=== PATIENT | male | born 1940 | race Caucasian/White ===

== ENCOUNTER 2016-06-05 20:50 | Inpatient (IN) | payer MEDICARE, OTHER ==
--- NOTE | ~2016-06-05 | HP ---
Unit #: [id number] #: [id number] Patient: SHANE BILL [id number] [address] [place], [place] [address] [id number] I MR#: [id number] NAME: SHANE BILL ROOM: 305 Age: 76 Sex: M Admission Date: 06/05/2016 : 1940 Attending Physician: Stuart Gregorio M.D. Primary Care Physician: Storm Medellin M.D. HISTORY AND PHYSICAL CHIEF COMPLAINT Cough, shortness of breath, wheezing. DISCUSSION This is a 76-year-old gentleman with a past medical history of lung cancer, previous right lower lobectomy, history of COPD, history of chronic respiratory failure on oxygen dependence at home. Follows with Dr. Hancock and Dr. Bonilla. History of paroxysmal atrial fibrillation, gastritis, dyslipidemia, hypertension, peripheral vascular disease, status post abdominal aortic aneurysm repair. He presented here and brought to the emergency room with a chief complaint of having shortness of breath, cough, wheezing. He said he had been using his mini nebulizer many times at home. Got worse today. Was unable to breathe. Came to ER. In the ER, patient underwent a CT chest PE protocol which was negative for pulmonary embolism. Shows postop partial right pneumonectomy and also shows minimal left lung base infiltrate but there was concern about irregular pleural mass in peripheral right upper lobe, 4.8 cm, concerning for recurrence of lung cancer and shows advanced emphysema. Patient also wheezing and being admitted though he denied chest pain, denied nausea, vomiting, diarrhea, headache, recent loss of weight, hemoptysis or any other complaint. PAST MEDICAL HISTORY 1. History of COPD. 2. History of chronic respiratory failure, oxygen dependent. 3. History of coronary artery disease. 4. History of peripheral vascular disease. 5. History of abdominal aortic aneurysm repair. 6. Dyslipidemia. 7. History of lung cancer, status post right side lobectomy in 2005. 8. History of GERD/gastritis. 9. History of mitral regurgitation. 10. History of PVCs and SVT in the past. 11. History of paroxysmal atrial fibrillation. 12. History of large reducible anterior wall abdominal hernia. 13. History of appendectomy. 14. History of incision repair. 15. History of left femur fracture with tara insertion. 16. History of right jaw surgery requiring his jaw to be wired. 17. ERCP with stent. 18. Cholecystectomy. ALLERGIES Allergic to azithromycin. Unit #: [id number] #: [id number] Patient: SHANE BILL MEDICATIONS Medications from home: 1. Singulair 10 mg daily. 2. Metoprolol 25 mg twice a day. 3. Omeprazole 40 mg daily. 4. Simvastatin 20 mg daily. 5. Dual nebulizer four times a day p.r.n. 6. Pradaxa 150 mg twice a day. SOCIAL HISTORY He quit smoking 11 years ago. Denies alcohol, denies illicit drug use. FAMILY HISTORY Positive for coronary artery disease in the family. REVIEW OF SYSTEMS 14 review of systems negative except as in History of Present Illness. PHYSICAL EXAMINATION GENERAL: Middle aged man lying in the bed comfortably, currently not in any distress. He is alert, awake, oriented x3. CURRENT VITAL SIGNS: Temperature 98.3, heart rate 94, respiratory rate 28, blood pressure is 162/91. Oxygen 96% on 3 L. HEENT: Pupils equal, reactive to light and accommodation. Head is normocephalic, atraumatic. NECK: Supple. No JVD, no thyromegaly. HEART: S1, S2. Regular rate and rhythm. LUNGS: Expiratory wheeze positive, also rhonchi. Positive for bilateral (1) . ABDOMEN: Soft, nontender, nondistended. He has a large reducible post surgical hernia in his anterior abdominal wall but no guarding, no rigidity. EXTREMITIES: Inspection normal. No cyanosis, no clubbing, no edema. SKIN: No rash, no lesion. Skin warm and dry. MUSCULOSKELETAL: No joint effusion, no joint tenderness. NEURO: Cranial nerves II-XII intact. Strength is 5/5 in all extremities. DIAGNOSTIC STUDIES LABORATORY: His troponin is less than 0.05, CK MB 3.4. Chemistry - sodium 142, potassium 4.5, chloride 100, glucose 112, BUN 11, creatinine 1. LFTs within normal limits. White count 8.9, hemoglobin 14, hematocrit 44, platelets 254. IMAGING: CT chest PE protocol shows negative for pulmonary embolism. Shows postop right partial pneumonectomy. Minimal left lung base infiltrate. Irregular pleural based peripheral mass in the right upper lobe, 4.8 cm, suspicious for recurrence of lung cancer. Advanced emphysema. ASSESSMENT AND PLAN 1. Pneumonia: Start patient on IV Levaquin. 2. New irregular pleural based mass, 4.8 cm in right upper lobe concerning for recurrence of lung cancer: I will ask Dr. Hancock to evaluate. Unit #: [id number] #: [id number] Patient: SHNAE BILL 3. Acute exacerbation of chronic obstructive pulmonary disease with chronic respiratory failure, oxygen dependent: Start on IV steroids, dual nebulizer, Mucinex. 4. History of paroxysmal atrial fibrillation: Currently rate controlled on metoprolol and on Pradaxa. 5. History of lung cancer with previous right lower lobectomy. 6. History of gastritis and gastroesophageal reflux disease: Continue omeprazole. 7. History of dyslipidemia/peripheral vascular disease: Status post abdominal aortic aneurysm repair, on simvastatin. 8. Hypertension: Continue metoprolol. 9. DVT prophylaxis: Patient is already on Pradaxa. Dictated by Marielle Sargent/kaveh TD: 06/06/2016 09:19 JOB #: [id number] HISTORY AND PHYSICAL X X HISTORY AND PHYSICAL
--- NOTE | ~2016-06-05 | CT6 ---
[facility] A Service of [facility] & [facility] RADIOLOGY TEXT RESULTS PATIENT: SHANE BILL LOCATION: [facility] 305- : 38 UNIT #: [id number] AGE: [address]: Rashid Angeles MD SEX: M ORDER DR: [id number] [facility] [address] [place], [place] [address] [id number] I MR#: [id number] Acc #: [id number] NAME: SHANE BILL : 1940 SEX: M STUDY DATE/TIME: 06/10/2016 09:30 UNIT: A [facility] ROOM: [facility] STUDY DESCRIPTION: CT Abdomen WWo Cont Attending Physician: Rashid Angeles M.D. Ordering Physician: Andrew Lauren M.D. Primary Care Physician: Storm Medellin M.D. MEDICAL IMAGING REPORT This report is preliminary unless electronic signature is present EXAM CT abdomen and pelvis without and with contrast, 06/10/2016 09:30 hours HISTORY Evaluate left upper pole renal mass seen on prior CT. History of lung carcinoma and abdominal aortic aneurysm. COMPARISON CT abdomen and pelvis angiogram 06/09/2016, ultrasound renal 06/09/[address] abdomen and pelvis without contrast 06/08/[address] abdomen and pelvis 07/05/2012. TECHNIQUE Helical noncontrasted images were obtained from the lung bases to the iliac crests. Postcontrast arterial phase and 90-second delayed phase images were obtained through the abdomen with 3-minute delayed phase images through the abdomen. The pelvis was not scanned. Sagittal and coronal reconstructions of the 90-second delayed phase images were performed. Contrast was Isovue-370, 100 mL IV. Total exam DLP 2212 mGy-cm. This CT exam was performed with one or more of the following radiation dose reduction techniques: automatic exposure control, adjustment of mA and/or kV according to patient size, and iterative reconstruction. FINDINGS Images through the lung bases demonstrate emphysematous change. There is total collapse of the left lower lobe without change. There is new ground-glass density at the right lung base with a new more solid appearing more well-circumscribed rounded area measuring 2.2 cm on image 7. This is not present on yesterday's exam and therefore infectious or STS. [facility] A Service of [facility] RADIOLOGY TEXT RESULTS PATIENT: SHANE BILL LOCATION: [facility] 305-01 : 38 UNIT #: [id number] AGE: [address]: Rashid Angeles MD SEX: M ORDER DR: embolic etiologies are strongly favored over developing mass. Noncontrasted images through the abdomen demonstrate stable pneumobilia in the liver. There is a nasogastric tube looped in the stomach. There is no adrenal lesion. There is a cyst in the upper pole right kidney measuring 1.4 cm. This is a nonenhancing benign lesion requiring no additional evaluation. Again demonstrated is a small 7.0 x 10.0 mm lesion in the medial upper pole left kidney. This is dense precontrast measuring between 40 and 60 Hounsfield units and measuring approximately 60-80 Hounsfield units postcontrast. This is most likely a complex hemorrhagic cyst. This is unchanged from the recent studies but also felt unchanged from 07/05/2012. This is most likely benign. The abdominal aorta is only partially imaged. There is a stent graft present without change from yesterday. The stomach is now decompressed. There is persistent dilatation of loops of small bowel with air-fluid levels. Example loop in the left lower quadrant measures up to 5.3 cm, slightly increased from 4.0 cm on 06/08/2016. Definite gas is seen in the colon. There is some oral contrast material within the colon as well. IMPRESSION 1. Multiphase imaging of the kidneys demonstrates a simple cyst in the upper pole right kidney requiring no additional evaluation. 2. There is a 7.0 x 10.0 mm lesion in the medial upper pole left kidney which is fairly dense measuring between 40 and 58 Hounsfield units precontrast and between 50 and 79 Hounsfield units postcontrast. It is favored that this represents a benign hyperdense cyst. It is not demonstrated on prior ultrasound. I believe it is stable or minimally changed from CT abdomen of 07/05/2012 which strongly favors a benign etiology. Suggest followup noncontrasted CT in 6-12 months. 3. Stable collapse of the left lower lobe. 4. There is new ground-glass opacity at the right lung base which has occurred since 06/09/2016. Within this ground-glass density is a more homogeneous more well-defined 2.2 cm nodular airspace density which is also new since yesterday. The rapid change favors an infectious or embolic etiology. Tumor mass is felt unlikely to be this size in 1 day. 5. Persistent increased distension of small bowel with definite gas seen in colon. Patient is scheduled for small bowel follow-through today. STAT * RESULT Dictated by... Miguelina Alonso M.D. THIS IS AN ELECTRONICALLY VERIFIED REPORT [facility] A Service of [facility] & [facility] RADIOLOGY TEXT RESULTS PATIENT: SHANE BILL LOCATION: [facility] 305-01 : 38 UNIT #: [id number] AGE: [address]: Rashid Angeles MD SEX: M ORDER DR: Miguelina Alonso M.D. at 06/21/2016 9:17 AM Adrian TD: 06/10/2016 10:26 JOB #: [id number] MEDICAL IMAGING REPORT Page 1 of 1 COPY
--- NOTE | ~2016-06-05 | CO ---
Unit #: [id number] #: [id number] Patient: SHANE BILL [id number] [address] [address] [id number] I MR#: [id number] NAME: SHANE BILL ROOM: 305 Age: 76 Sex: M Admission Date: 06/05/2016 : 1940 Attending Physician: Rashid Angeles M.D. Primary Care Physician: Storm Medellin M.D. Consultation Date: 06/09/2016 CONSULTATION REPORT REASON FOR CONSULTATION Small hyperdense lesion on CT scan. HISTORY This 76-year-old man was admitted with pneumonia. He has a new pleural-based chest mass. He is having active problems with gastroparesis, being evaluated, and there is some question of a leaking abdominal aortic aneurysm. On noncontrast CT, is seen a 7 mm markedly exophytic lesion on the anterior aspect of the mid left kidney medially which is hyperdense. The patient has no history of voiding difficulties, gross hematuria, infection or stone disease. He is missing his left testicle from trauma years ago. PAST MEDICAL HISTORY 1. COPD. 2. History of lung cancer, status post right lobectomy in 2005. 3. Chronic respiratory failure on oxygen. 4. Coronary artery disease. 5. Peripheral vascular disease. 6. A 4.3 cm abdominal aortic aneurysm, status post repair. 7. Dyslipidemia. 8. History of mitral regurgitation, PVCs, SVT in the past. 9. PAF. 10. GERD. 11. Gastritis. 12. Recurrent hernias. PAST SURGICAL HISTORY 1. Cholecystectomy. 2. ERCP with stent. 3. Jaw surgery. 4. Femur fracture. 5. Ventral herniorrhaphy. 6. Appendectomy. 7. Lobectomy. ADMISSION MEDICATIONS 1. Singulair. 2. Metoprolol. 3. Omeprazole. 4. Simvastatin. 5. Nebulizer. Unit #: [id number] #: [id number] Patient: SHANE BILL 6. Pradaxa. ALLERGIES Azithromycin. FAMILY HISTORY Positive for coronary disease. SOCIAL HISTORY Quit smoking 11 years ago. REVIEW OF SYSTEMS negative as above and all other systems negative as per HPI. PHYSICAL EXAMINATION GENERAL: On examination, the patient has a large abdominal ventral hernia. ABDOMEN: Soft, nontender. No masses. GENITALIA: Phallus normal. Normal glans and meatus. Solitary descended right testicle. RECTAL: Digital deferred. DIAGNOSTIC STUDIES LABORATORY: Laboratory is notable for a BUN 28, creatinine 0.9, eGFR above 60. IMAGING: CT scan as above including other findings. IMPRESSION Small lesion, likely hyperdense cyst, maybe visible on ultrasound but if not will need a CT renal mass protocol which should not be done until after he is cleared surgically and by vascular so as not to order conflicting studies. PLAN Will order renal ultrasound and proceed accordingly. Thank you for the consultationChiki. Dictated by... Andrew Lauren M.D. JASKARAN/to TD: 06/09/2016 08:59 JOB #: [id number] CC: Marielle Edwards M.D. Unit #: [id number] #: [id number] Patient: SHANE BILL CONSULTATION REPORT Page 1 of 1 X Andrew Lauren MD CONSULTATION REPORT
--- NOTE | ~2016-06-05 | DS ---
Unit #: [id number] #: [id number] Patient: SHANE BILL [id number] [address] [place], [place] [address] [id number] MR#: [id number] NAME: SHANE BILL ROOM: [facility] Age: 76 Sex: M Admission Date: 06/05/2016 : 1940 Discharge Date: 06/11/2016 Attending Physician: Rashid Angeles M.D. Primary Care Physician: Storm Medellin M.D. DISCHARGE SUMMARY ADMITTING DIAGNOSIS Cough, shortness of breath, and wheeze. FURTHER DIAGNOSES 1. Community-acquired pneumonia. 2. History of lung cancer, status post right lower lobectomy, possible recurrent mass concerning for recurrence of lung cancer. 3. History of chronic obstructive pulmonary disease. 4. History of chronic respiratory failure. 5. 7 mm mass on the kidney. 6. Increasing aortic aneurysm. 7. Possible gastrointestinal bleed with hemoptysis. 8. Small bowel obstruction which is relieved now. CONSULTANTS 1. Dr. Hancock. 2. Dr. Walt Hernandez. 3. Dr. Lauren. 4. Dr. Boucher. 5. Dr. Jamin Reynoso, vascular surgeon. HISTORY OF PRESENT ILLNESS The patient is a 76-year-old gentleman with a past medical history of lung cancer, status post right lower lobectomy, history of COPD, chronic respiratory failure on oxygen, presented to the hospital with chief complaint of cough and shortness of breath. In the hospital course, CT of the chest was done which was negative for PE but it shows irregular pleural mass in the periphery of the right upper lobe about 4.8 cm concerning for recurrence of lung cancer and also advanced emphysema. HOSPITAL COURSE Pulmonary was consulted. Dr. Hancock has recommended the patient to follow up with him in the clinic for an outpatient repeat CT scan in the month of July. He was treated with antimicrobials for a total of 7 days for possible postobstructive pneumonia versus community-acquired pneumonia with Levaquin and Flagyl. In the hospital course he also had an episode of hematemesis and for further workup an EGD was done. When the EGD was done, he was noted to have a large amount of fluid in the stomach with a concern for small bowel obstruction. A CT of the abdomen was done which showed small bowel obstruction. He was managed conservatively, Surgery followed the patient. Unit #: [id number] #: [id number] Patient: SHANE BILL Slowly, his bowel function resumed. He is able to tolerate oral and he had bowel movements. He was also noted to have a 7 mm renal mass. Urology was consulted. He had a CT of the abdomen with renal protocol. He is instructed to follow with Urology as an outpatient. His abdominal aortic aneurysm was noted to increase in size and, Vascular Surgery was consulted. Vascular Surgery recommended no further workup at this point but he needs a repeat CT angiogram of the abdomen in 3 to 6 months for further evaluation. With the concern for GI bleed, his Pradaxa was kept on hold. Today we are resuming his Pradaxa. The vascular surgeon said there is no contraindication from his standpoint. I spoke with Gastroenterology and they are also agreeable to let him resume his oral anticoagulation. He is doing clinically better. We will discharge him requesting to follow with his primary care in 1 to 2 weeks. I spoke with Dr. King this afternoon who is covering for Dr. Hancock. The patient is requiring 4 liters of oxygen and he said we will continue with oxygen and discharge him home. PHYSICAL EXAMINATION On the day of the discharge: VITAL SIGNS: Temperature 98.9, pulse rate 82, respiratory rate 18, blood pressure 126/78. GENERAL: Patient is alert and oriented times 3, lying in the bed in no acute distress. HEENT: Normocephalic, atraumatic. No icterus. PERRLA. Extraocular muscles are intact. NECK: Supple. No JVD. HEART: S1, S2 irregular. CHEST: Bilateral equal air entry. Minimal rhonchi. Old surgical scar. ABDOMEN: Well-healed midline surgical scar. Mild distention. Bowel sounds present. EXTREMITIES: No edema. Normal pulses. DISCHARGE MEDICATIONS Include: 1. Combivent 3 mL nebulization q.6 h. p.r.n. 2. Tylenol p.r.n. 3. Pradaxa 150 mg b.i.d. 4. Dulera 200/5 mcg inhaler two puffs b.i.d. 5. Metoprolol 25 mg b.i.d. 6. Mucinex one tab p.o. b.i.d. 7. Simvastatin 20 mg daily. 8. Montelukast 10 mg daily. 9. Omeprazole 40 mg daily. DISCHARGE INSTRUCTIONS He is instructed to follow with his primary care and with Pulmonary as an outpatient. Also with Urology. All of the discharge instructions explained in detail to the patient. Total time spent on his in his care, 35 minutes. Unit #: [id number] #: [id number] Patient: SHANE BILL by..Marielle Azul/marty TD: 06/11/2016 18:38 JOB #: [id number] DISCHARGE SUMMARY Page 1 of 1 X X DISCHARGE SUMMARY
--- NOTE | ~2016-06-05 | US77 ---
[facility] A Service of [facility] & [facility] RADIOLOGY TEXT RESULTS PATIENT: SHANE BILL LOCATION: [facility] - : 38 UNIT #: [id number] AGE: [address]: Rashid Angeles MD SEX: M ORDER DR: [id number] [facility] [address] [place], [place] [address] [id number] MR#: [id number] Acc #: [id number] NAME: SHANE BILL : 1940 SEX: M STUDY DATE/TIME: 06/09/2016 9:55 UNIT: [address] ROOM: [facility] STUDY DESCRIPTION: US Kidney Bilateral Complete Attending Physician: Rashid Angeles M.D. Ordering Physician: Andrew Lauren M.D. Primary Care Physician: Storm Medellin M.D. MEDICAL IMAGING REPORT This report is preliminary unless electronic signature is present EXAM Renal ultrasound bilateral 06/09/2016 INDICATIONS Assessment of a left renal cyst, BUN 28. Creatinine 0.9, GFR greater than 60. CT of the abdomen and pelvis no contrast 06/08/2016 demonstrated an indeterminate 7 mm nodule that was hyperdense and arising from the anterior aspect of the left kidney. TECHNIQUE Sonographic imaging of the kidneys was performed bilaterally. Correlation is made with recent CT 06/08/2016. FINDINGS The kidney measures 13.2 x 7.1 x 4.7 cm. Left kidney measures 11.0 x 6.2 x 5.2 cm. No hydronephrosis or shadowing stone on either side. The 7 mm hyperdense lesion in the anterior medial left kidney has no distinct ultrasound correlate. If the patient can tolerate IV contrast then a multiphase protocol CT would be recommended for further assessment of the indeterminate 7 mm lesion. If the patient is not a candidate for IV contrast consider followup noncontrast CT in 6 months for reassessment of stability of the lesion. The technologist has placed calipers upon an area of decreased echogenicity associated with the renal cortex favored to represent normal renal cortex based on imaging features with ultrasound. No distinct lesion identified on ultrasound or on the noncontrast CT in this location. The bladder is unremarkable. IMPRESSION 1. There is no correlate for the 7 mm indeterminate lesion in the medial anterior left kidney on today's ultrasound. See discussion above regarding further evaluation with renal protocol with and without contrast CT if the patient is a candidate for IV contrast. If the [facility] A Service of [facility] RADIOLOGY TEXT RESULTS PATIENT: SHANE BILL LOCATION: [facility] 305-01 : 38 UNIT #: [id number] AGE: [address]: Rashid Angeles MD SEX: M ORDER DR: patient is not a candidate for IV contrast a repeat noncontrast CT in 6 months could be performed for reassessment of stability. 2. The kidneys demonstrate no hydronephrosis or shadowing stone on either side. 3. Bladder unremarkable. Dictated by... Ignacio Castaneda M.D. THIS IS AN ELECTRONICALLY VERIFIED REPORT Ignacio Castaneda M.D. at 06/10/2016 7:31 AM Fernandez TD: 06/09/2016 15:18 JOB #: [id number] MEDICAL IMAGING REPORT Page 1 of 1 COPY
--- NOTE | ~2016-06-05 | CT16 ---
[facility]. [facility] A Service of [facility] & [facility] RADIOLOGY TEXT RESULTS PATIENT: SHANE BILL LOCATION: [facility] 305- : 38 UNIT #: [id number] AGE: [address]: Rashid Angeles MD SEX: M ORDER DR: [id number] [place] [id number] [facility]. [place], [place] [address] [id number] I MR#: [id number] Acc #: [id number] NAME: SHANE BILL : 1940 SEX: M STUDY DATE/TIME: 06/05/2016 21:24 UNIT: [address] ROOM: [facility] STUDY DESCRIPTION: CT Angio Chest for PE Attending Physician: Stuart Gregorio M.D. Ordering Physician: Ed Julio Aranda M.D. Primary Care Physician: Storm Medellin M.D. MEDICAL IMAGING REPORT This report is preliminary unless electronic signature is present EXAM CT chest with contrast, pulmonary arteriography protocol, 06/05/2016. HISTORY 76-year-old male in the ED complaining of 2-day history of shortness of air, worsening this evening. Past history of lung cancer. TECHNIQUE CT examination of the chest was performed with IV contrast using pulmonary arteriography protocol. 3-D CTA images of the pulmonary arteries were reformatted in multiple planes. This CT exam was performed with one or more of the following radiation dose reduction techniques: Automatic exposure control, adjustment of mA and/or kV according to patient size, and iterative reconstruction. COMPARISON CT chest, 09/01/2010. FINDINGS No evidence of pulmonary embolism. Normal-caliber thoracic aorta. Heart size is normal, there is no pericardial effusion. Postop changes partial right pneumonectomy surgery. Advanced pulmonary emphysema. Central pulmonary artery enlargement likely related to chronic pulmonary artery hypertension. Mild patchy infiltrate in the left lung base with opacification of a few central left lower lobe bronchi. There is an irregular, pleural-based pulmonary mass in the right upper lung posteriorly along the paraspinal margin measuring up to 4.8 x 1.8 cm. This was not present on the previous study and is concerning for recurrent STS. [facility] A Service of [facility] & [facility] RADIOLOGY TEXT RESULTS PATIENT: SHANE BILL LOCATION: [facility] 305-01 : 38 UNIT #: [id number] AGE: [address]: Rashid Angeles MD SEX: M ORDER DR: malignancy. Short interval followup or biopsy is recommended for further evaluation. No suspicious mass or adenopathy is seen within the mediastinum or pulmonary gregorio, or elsewhere within the chest. Limited upper abdominal images showing postop changes cholecystectomy and likely sphincterotomy with intrahepatic pneumobilia and a few scattered benign-appearing liver cysts. IMPRESSION 1. No evidence of pulmonary embolism. 2. Tortuous thoracic aorta is normal in caliber. Heart size normal. No pericardial effusion. 3. Postop changes partial right pneumonectomy. 4. Advanced pulmonary emphysema. Minimal patchy infiltrate left lung base with opacification of a few central left lower lobe bronchi. 5. Suspicious irregular pleural-based peripheral pulmonary mass in the right upper lung posteromedial along posteromedially along the paraspinal margin measuring up to 4.8 cm. This was not present on 09/01/2010 and is concerning for recurrent lung cancer. Short interval followup CT or biopsy is recommended for further evaluation. No additional suspicious mass or adenopathy is seen elsewhere within the chest. 6. Central pulmonary artery enlargement likely indicated. Pulmonary artery hypertension. 7. Postop changes cholecystectomy and likely sphincterotomy. Dictated by... Raf Pretty M.D. THIS IS AN ELECTRONICALLY VERIFIED REPORT Raf Pretty M.D. at 06/07/2016 9:53 PM GLENN/chaz TD: 06/07/2016 06:37 JOB #: [id number] MEDICAL IMAGING REPORT COPY
--- NOTE | ~2016-06-05 | CR72 ---
[facility] A Service of [facility] & [facility] RADIOLOGY TEXT RESULTS PATIENT: SHANE BILL LOCATION: [facility] - : 38 UNIT #: [id number] AGE: [address]: Stuart Gregorio MD SEX: M ORDER DR: [id number] [facility] [address] [facility]. [place], [place] [address] [id number] I MR#: [id number] Acc #: [id number] NAME: SHANE BILL : 1940 SEX: M STUDY DATE/TIME: 06/05/2016 20:05 UNIT: [address] ROOM: [facility] STUDY DESCRIPTION: CR Chest Single View Portable Attending Physician: Stuart Gregorio M.D. Ordering Physician: Wander Aranda M.D. Primary Care Physician: Storm Medellin M.D. MEDICAL IMAGING REPORT This report is preliminary unless electronic signature is present EXAM Chest x-ray, single view portable, 06/05/2016 HISTORY Short of air, cough and congestion started yesterday. History of right side lung cancer. COMMENTS Single frontal portable view of the chest timed 20:05 on 06/05/2016 compared to 12/23/2015. There is right hemithorax volume loss consistent with a treated lung cancer. There is parenchymal scarring which is unchanged on plain film comparison. No change in the appearance of the right hilum. Heart size is normal. There is ectasia of the descending thoracic aorta with vascular calcification, also chronic and stable. There is a small opacity at the periphery of the left lung base which is new. It is nonspecific and could be some patchy airspace disease but please correlate further clinically and followup to ensure resolution. If staging of the patient's lung cancer is indicated, chest CT would be better for followup. No pneumothorax. IMPRESSION Extensive chronic abnormalities including postoperative changes to the right hemithorax which are stable. There is one parenchymal opacity at the periphery of the left base which is new from 2016 and could be a small amount of pneumonitis but it is very nonspecific and clinical correlation and followup to resolution is recommended. Nothing to suggest congestive failure, pleural effusion or pneumothorax. If restaging of the patient's lung cancer is indicated it is best performed with a followup chest CT. [facility] A Service of [facility] & [facility] RADIOLOGY TEXT RESULTS PATIENT: SHANE BILL LOCATION: [facility] 305-01 : 38 UNIT #: [id number] AGE: [address]: Stuart Gregorio MD SEX: M ORDER DR: Dictated by... Ashley West M.D. THIS IS AN ELECTRONICALLY VERIFIED REPORT Ashley West M.D. at 06/07/2016 7:46 AM STEPHANIE/corinne TD: 06/07/2016 03:13 JOB #: [id number] MEDICAL IMAGING REPORT COPY
--- NOTE | ~2016-06-05 | CR4 ---
[facility] A Service of [facility] RADIOLOGY TEXT RESULTS PATIENT: SHANE BILL LOCATION: [facility] - : 38 UNIT #: [id number] AGE: [address]: Rashid Angeles MD SEX: M ORDER DR: [id number] [facility] [address] [place], [place] [address] [id number] I MR#: [id number] Acc #: [id number] NAME: SHANE BILL : 1940 SEX: M STUDY DATE/TIME: 06/08/2016 13:21 UNIT: [address] ROOM: [facility] STUDY DESCRIPTION: CR Abdomen Flat Upright or Dec Attending Physician: Rashid Angeles M.D. Ordering Physician: Walt Hernandez M.D. Primary Care Physician: Storm Medellin M.D. MEDICAL IMAGING REPORT This report is preliminary unless electronic signature is present EXAM Flat and upright abdomen, 06/08/2016 INDICATION 76-year-old male with possible perforation and abdominal pain today. Compared with chest x-ray from 06/05/2016, FINDINGS There is diffuse gas within the colon and the small bowel. There is a crescentic area of gas in the right upper quadrant. It appears to be outlining some bowel loops and is concerning for some free air given the clinical concern. I would suggest further evaluation with a CT scan. An aortic stent graft is in place. IMPRESSION There is a crescentic air density in the right upper quadrant which appears to outline some loops of bowel and is concerning for the possibility of free air given the clinical concern. At this point I would recommend further evaluation with a CT scan of the abdomen and pelvis. Dictated by... Moris Sampson M.D. THIS IS AN ELECTRONICALLY VERIFIED REPORT Moris Sampson M.D. at 06/09/2016 11:31 AM DONI/corinne TD: 06/08/2016 21:11 JOB #: [id number] [facility] A Service of [facility] & [facility] RADIOLOGY TEXT RESULTS PATIENT: SHANE BILL LOCATION: [facility] 305-01 : 38 UNIT #: [id number] AGE: [address]: Rashid Angeles MD SEX: M ORDER DR: MEDICAL IMAGING REPORT Page 1 of 1 COPY
--- NOTE | ~2016-06-05 | CT4 ---
[facility] A Service of [facility] & [facility] RADIOLOGY TEXT RESULTS PATIENT: SHANE BILL LOCATION: [facility] 305- : 38 UNIT #: [id number] AGE: [address]: Rashid Angeles MD SEX: M ORDER DR: [id number] [facility] [address] [facility] [address] [place], [place] [address] [id number] I MR#: [id number] Acc #: [id number] NAME: SHANE BILL : 1940 SEX: M STUDY DATE/TIME: 06/08/2016 15:11 UNIT: A U ROOM: 305 STUDY DESCRIPTION: CT Abd and Pelv Wo Cont Attending Physician: Rashid Angeles M.D. Ordering Physician: Rashid Angeles M.D. Primary Care Physician: Storm Medellin M.D. MEDICAL IMAGING REPORT This report is preliminary unless electronic signature is present EXAM CT of the abdomen and pelvis without contrast media, 06/08/2016 COMPARISON 07/05/2012 HISTORY SUPPLIED Possible free air in the abdomen seen on the abdominal radiograph. Abdominal pain beginning today. TECHNIQUE Transaxial imaging of the abdomen and pelvis was performed without contrast media: This CT exam was performed with one or more of the following radiation dose reduction techniques: automatic exposure control, adjustment of mA and/or kV according to patient size, and iterative reconstruction. FINDINGS Scans through the lung bases show complete atelectasis of the left lower lobe with air bronchograms. There is evidence of advanced chronic lung disease. The patient has pneumobilia. Gallbladder is absent. There is air in the common duct down to the duodenum. No masses are identified. Spleen is relatively small. Adrenal gland are normal. Pancreas is atrophic. There is renal cortical thinning in the lower pole of the right kidney. There is a hyperdense left renal lesion measuring 7 mm in diameter. It appears slightly larger than it did on the scan of 4 years ago. No other definite renal masses are seen. Postop changes of prior aortic stent graft placement are present. 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 There are dilated small bowel loops throughout the abdomen. Zone of transition appears to be in the distal ileum in the right lower quadrant. Ventral abdominal wall hernia containing fat is present. There [facility] A Service of [facility] RADIOLOGY TEXT RESULTS PATIENT: SHANE BILL LOCATION: [facility] 305-01 : 38 UNIT #: [id number] AGE: [address]: Rashid Angeles MD SEX: M ORDER DR: is no evidence of obstruction related to the ventral hernia. The prostate is not enlarged. There are postop changes in the left femoral shaft. There is advanced atherosclerotic disease present. There is evidence of degenerative facet disease in the lower lumbar spine. Anterior wedge compression deformity is present at T10. It is unchanged from 2013. CONCLUSION 1. Complete atelectasis of the left lower lobe with air bronchograms. 2. Pneumobilia. 3. No evidence of intraabdominal free air. 4. Not mentioned above, coronary atherosclerotic disease. 5. Marked renal cortical thinning in the lower pole of the right kidney. 6. Small hyperdense lesion measuring 7 mm arising from the anterior aspect of the left kidney, probably a small cyst with hemorrhage. 7. Dilated small bowel down to the right lower quadrant where there is an abrupt zone of transition suggesting high-grade partial small bowel obstruction. 8. Increase in size of the aneurysm sac to about4.3 cm from approximately 3.5 cm on the old study. This raises the question of an endoleak. 5. Ventral abdominal wall hernias. It does contain some bowel but there is no evidence of obstruction related to the hernias. 6. Advanced atherosclerotic disease. 7. Postop changes left femoral shaft. 8. Chronic and T10 compression fracture. Dictated by... Gregor Min M.D. THIS IS AN ELECTRONICALLY VERIFIED REPORT Gregor Min M.D. at 06/09/2016 3:09 PM BRIAN/corinne TD: 06/09/2016 04:50 JOB #: [id number] MEDICAL IMAGING REPORT Page 1 of 1 COPY
--- NOTE | ~2016-06-05 | CR236 ---
[facility] A Service of [facility] RADIOLOGY TEXT RESULTS PATIENT: SHANE BILL LOCATION: [facility] : 38 UNIT #: [id number] AGE: [address]: Rashid Angeles MD SEX: M ORDER DR: [id number] [facility] [address] [facility] [place], [place] [address] [id number] I MR#: [id number] Acc #: [id number] NAME: SHANE BILL : 1940 SEX: M STUDY DATE/TIME: 06/10/2016 9:50 [facility] STUDY DESCRIPTION: CR Small Bowel Sbft W Films Attending Physician: Rashid Angeles M.D. Ordering Physician: Gregor Boucher M.D. Primary Care Physician: Storm Medellin M.D. MEDICAL IMAGING REPORT This report is preliminary unless electronic signature is present EXAM Small bowel follow-through 06/10/[address] abdomen and pelvis 06/10/2016 HISTORY Suspected small bowel obstruction. FINDINGS Spot images obtained without fluoroscopy. Total of 6 overhead images were obtained. These revealed minimal ingested barium which the patient unfortunately became nauseated and threw up, with minimal dilute distal flow of contrast. No meaningful assessment of obstruction could be performed. IMPRESSION Fairly limited study because the patient became nauseated and experienced emesis with any attempt to swallow more contrast. This yielded only very dilated oral contrast passing only a short distance discernibly into the small bowel and no meaningful assessment could be performed. Dictated by... Aneesh Castelan M.D. THIS IS AN ELECTRONICALLY VERIFIED REPORT Aneesh Castelan M.D. at 06/11/2016 4:00 PM RONEN/rob TD: 06/10/2016 16:31 JOB #: [id number] MEDICAL IMAGING REPORT [facility] A Service [facility] RADIOLOGY TEXT RESULTS PATIENT: SHANE BILL LOCATION: [facility] 305-01 : 38 UNIT #: [id number] AGE: [address]: Rashid Angeles MD SEX: M ORDER DR: Page 1 of 1 COPY
--- NOTE | ~2016-06-05 | CR4 ---
[facility] A Service of [facility] & [facility] RADIOLOGY TEXT RESULTS PATIENT: SHANE BILL LOCATION: [facility] - : 38 UNIT #: [id number] AGE: [address]: Rashid Angeles MD SEX: M ORDER DR: [id number] [facility] [address] [facility] [place], [place] [address] [id number] I MR#: [id number] Acc #: [id number] NAME: SHANE BILL : 1940 SEX: M STUDY DATE/TIME: 06/09/2016 10:25 UNIT: A PCU ROOM: [facility] STUDY DESCRIPTION: CR Abdomen Flat Upright or Dec Attending Physician: Rashid Angeles M.D. Ordering Physician: Chiki Mccullough M.D. Primary Care Physician: Storm Medellin M.D. MEDICAL IMAGING REPORT This report is preliminary unless electronic signature is present EXAM Abdomen supine and upright 06/09/2016, 10:33 hours. HISTORY Abdominal distension with pain, possible obstruction. Symptoms since 06/05/2016. COMPARISON CT abdomen and abdominal film 06/08/2016. FINDINGS Supine and upright views of the abdomen demonstrate a nasogastric tube which loops in the stomach with the tip directed cephalad at the GE junction. There are persistent multiple gas-filled dilated loops of small bowel with some colonic gas present. Findings appear similar to the CT scan of 06/08/2016, suggesting distal obstruction. Vascular stents noted in the aorta and iliac vessels without change. Hardware is present at the left hip with proximal aspect of the screw projecting beyond the cortical margin of the trochanter. IMPRESSION 1. Persistent gaseous distension of numerous loops of small bowel which are not dilated similar to CT scan 06/08/2016, with some colonic gas present. Findings suggest persistent small bowel obstruction, likely distally. 2. There is a nasogastric tube present which loops in the stomach with tip directed cephalad back at the GE junction. Consider adjustment. 3. Hardware at the left proximal femur with bone screw projecting beyond the cortical margin of the greater trochanter. [facility] A Service of [facility] & [facility] RADIOLOGY TEXT RESULTS PATIENT: SHANE BILL LOCATION: [facility] 305-01 : 38 UNIT #: [id number] AGE: [address]: Rashid Angeles MD SEX: M ORDER DR: Dictated by... Miguelina Alonso M.D. THIS IS AN ELECTRONICALLY VERIFIED REPORT Miguelina Alonso M.D. at 06/10/2016 9:21 AM RICK/cheryl TD: 06/09/2016 15:31 JOB #: [id number] MEDICAL IMAGING REPORT Page 1 of 1 COPY
--- NOTE | ~2016-06-05 | EKG ---
PATIENT: SHANE BILL UNIT #: [id number] Ventricular Rate: 88 BPM Atrial Rate: 88 BPM P-R Interval: 200 ms QRS Duration: 92 ms Q-T Interval: 390 ms QTC Calculation(Bezet): 471 ms P Newell: 67 degrees Calculated R Newell: -68 degrees Calculated T Newell: 58 degrees Diagnosis Line: Normal sinus rhythm Diagnosis Line: Left axis deviation Diagnosis Line: Abnormal ECG Diagnosis Line: When compared with ECG of 30-DEC-2015 07:41, Diagnosis Line: Sinus rhythm has replaced Atrial fibrillation Diagnosis Line: Confirmed by ESTRELLA PUGH MD ([id number]) on 06/07/2016 Diagnosis Line: 7:30:48 AM INTERPRETING MD: KEATON KIRKLAND
--- NOTE | ~2016-06-05 | CT14 ---
[facility] A Service of [facility] RADIOLOGY TEXT RESULTS PATIENT: SHANE BILL LOCATION: [facility] 305- : 38 UNIT #: [id number] AGE: [address]: Rashid Angeles MD SEX: M ORDER DR: [id number] [facility] [address] [place], [place] [address] [id number] MR#: [id number] Acc #: [id number] NAME: SHANE BILL : 1940 SEX: M STUDY DATE/TIME: 06/09/2016 15:39 UNIT: [address] ROOM: 305 STUDY DESCRIPTION: CT Angio Abdomen and Pelvis Attending Physician: Rashid Angeles M.D. Ordering Physician: Rashid Angeles M.D. Primary Care Physician: Storm Medellin M.D. MEDICAL IMAGING REPORT This report is preliminary unless electronic signature is present EXAM CT angiography abdomen and pelvis, 06/09/2016. HISTORY Patient had CT abdomen and pelvis 06/08/2016. Results have increased in size of aneurysm sac to 4.3 cm from 3.5 cm on old study. This exam is to evaluate for possible endoleak. Denies any symptoms other than increased gas for 1 day. Prior history of COPD and lung cancer. TECHNIQUE CT of the abdomen and pelvis performed with CT angiography protocol using 100 mL Isovue-370 intravenously. Arterial and delayed-phase imaging obtained through the aorta. Multiple 3-dimensional reconstructions performed through the aorta. This CT exam was performed with one or more of the following radiation dose reduction techniques: automatic exposure control, adjustment of mA and/or kV according to patient size, and iterative reconstruction. COMPARISON Comparison to noncontrast enhanced exam, 06/08/2016. FINDINGS Emphysema at the lung bases. Dependent atelectasis and scarring at the right lung base. There appears to be complete collapse of the left lower lobe, unchanged from yesterday's examination. Etiology unclear. This could be further evaluated bronchoscopically. The visualized inferior heart and pericardium notable for borderline cardiac enlargement. Some mild prominence of the right main pulmonary artery measuring about 3 cm in diameter and main pulmonary artery measuring about 3.2 cm in diameter. This could be a reflection of pulmonary arterial hypertension. The liver shows stable pneumobilia. Status post cholecystectomy. Segment 6 hepatic STS. [facility] A Service of [facility] RADIOLOGY TEXT RESULTS PATIENT: SHANE BILL LOCATION: [facility] 305-01 : 38 UNIT #: [id number] AGE: [address]: Rashid Angeles MD SEX: M ORDER DR: cysts. Spleen, pancreas, adrenal glands unremarkable. Exophytic cyst upper pole right kidney. Cortical thinning lower pole of the right kidney is stable. Likely reflecting prior vascular insult or prior infection. The subcentimeter hyperdense focus along the medial aspect upper pole left kidney is again noted. It does not meet CT criteria for a simple cyst. It was probably present on contrast-enhanced CT examination dated 06/30/2012 when it measured about 5 mm. On the basis of today's examination, I cannot strictly exclude solid nodule, but I favor complicated cyst with internal proteinaceous fluid or products of hemorrhage. It is best further evaluated with ultrasound. Presence since 2013 favors benign etiology. Remainder of left kidney is unremarkable. CT PELVIS: No inguinal adenopathy. Prior orthopedic intervention, left femur, with intramedullary tara seen. No pelvic adenopathy. Urinary bladder and prostate unremarkable. There are some shotty retroperitoneal lymph nodes at level of mid to lower kidneys and these are unchanged from 2013. Likely benign/reactive in nature. There is an enteric tube present. It is looped in the proximal third of the stomach with the tip pointed cephalad in the distal esophagus. Repositioning is recommended. It probably extends about 16 cm below the diaphragm with approximately 3-4 cm of the distal catheter extending cephalad into the distal esophagus. Repositioning recommended. No fluid seen in the esophagus. Stomach shows mild gaseous and fluid distension. Small bowel is abnormal. Multiple loops of abnormally dilated small bowel measuring up to 5.8 cm in diameter. Increased in overall maximal caliber from yesterday's examination where the loops measured up to about 4.5 cm in diameter. There is a transition zone in the mid abdomen just anterior to the abdominal aorta. This is probably in the gni-ef-wdsopx jejunum. The appearance is consistent with high-grade small bowel obstruction. There is some fluid and air in the distal small bowel. The appendix is unremarkable. The colon contains air and stool throughout its course. The distal colon is relatively decompressed. The distal colonic wall is mildly prominent with no associated inflammatory change. This is probably a reflection of its decompressed state. Bony structures show multilevel degenerative changes in the spine. There is a mild chronic-appearing T12 compression deformity. No clearly acute bony abnormality. VASCULAR ANATOMY: Visualized thoracic aorta unremarkable. The celiac axis is patent. 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 The superior mesenteric artery is patent with at least moderate luminal narrowing at its origin. Appearance raises the possibility of hemodynamically-significant luminal narrowing. There are 2 right renal arteries. 1 of these is a small accessory artery to the lower pole. There is probably moderate diseased at its origin. The main right renal artery shows severe atherosclerotic disease at its origin. There is a single left renal artery with moderate disease at its origin. Patient is [facility] A Service of [facility] RADIOLOGY TEXT RESULTS PATIENT: SHANE BILL LOCATION: [facility] 305-01 : 38 UNIT #: [id number] AGE: [address]: Rashid Angeles MD SEX: M ORDER DR: status post endovascular graft repair of infrarenal abdominal aortic aneurysm. The graft limbs extend into the distal common iliac arteries bilaterally and the graft limbs appear widely patent. There is no evidence of aneurysm leakage. The aneurysm sac measures 4.4 cm in AP dimension on current examination. Similar appearance on yesterday's examination when it measured 4.33 cm. The delayed phase images show evidence of endoleak at the level of the proximal graft limbs within the aneurysm sac. Subtle enhancement in the aneurysm sac posterior to the graft limbs. Exact type of endoleak somewhat unclear on basis of this examination. There are some lumbar vertebral arteries in this region and I favor that the endoleak is secondary to upper lumbar vertebral arteries. The internal iliac arteries are patent bilaterally. Moderate to severe disease in the bilateral external carotid arteries more pronounced on the right with focal severe narrowing of the proximal right external iliac artery. Moderate disease in the bilateral common femoral arteries. The proximal superficial femoral arteries and profunda femoris arteries appear patent. Postoperative change in the anterior abdominal wall with diastasis of the rectus sheath and small anterior abdominal wall hernias containing fat. No change. IMPRESSION 1. Abnormal examination. Please see complete dictation above for full details. The patient is status post endovascular graft repair of infrarenal fusiform abdominal aortic aneurysm. The graft is widely patent with limbs extending into the distal common iliac arteries bilaterally. The aneurysm sac measures up to 4.4 cm in AP dimension, probably not significantly changed from yesterday's examination taking into account differences in scan angulation and patient positioning. There is an endoleak most conspicuous on the delayed-phase images along the posterior aspect of the proximal iliac graft limbs within the aneurysm sac. Exact cause for the endoleak is unclear, but there are patent lumbar arteries in this region and I favor that this is a type 2 endoleak related to lumbar arteries. 2. 2 right renal arteries with severe disease in the main right renal artery. Moderate disease in the single left renal artery. 3. Moderate disease, superior mesenteric artery origin. 4. 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 5. High-grade small bowel obstruction. Small bowel loops dilated up to about 5.8 cm in diameter. Increased dilatation compared to yesterday's examination. There appears to be a transition zone in the mid abdomen just anterior to the aortic aneurysm probably related to adhesions. The level of transition is probably in the wxf-xi-jzvjyw jejunum. The more distal small bowel is decompressed though there is some air and fluid in the distal small bowel. There is air and stool throughout the colon with relative decompression of the distal colon. Sigmoid colonic wall appears mildly prominent [facility] A Service of [facility] RADIOLOGY TEXT RESULTS PATIENT: SHANE BILL LOCATION: A 305-01 : 38 UNIT #: [id number] AGE: [address]: Rashid Angeles MD SEX: M ORDER DR: diffusely without adjacent inflammatory change and with no eccentric mass lesion. This mild prominence may simply be a reflection of the decompression of the sigmoid colon. Appendix normal. 6. Stable postoperative changes, anterior abdominal wall with diastasis of the linea alba and anterior abdominal wall hernias containing fat. No evidence of complication. 7. Continued complete atelectasis, left lower lobe. 8. Study not tailored for assessment of pulmonary arteries. Visualized pulmonary arteries are prominent suggesting pulmonary arterial hypertension. See above. 9. Trace right pleural effusion. Not a drainable fluid collection. 10. Stable pneumobilia. Status post cholecystectomy. Stable right hepatic lobe cyst and left upper pole renal cyst. 11. 7 mm hypodense, but not simple, cystic structure, medial left upper renal pole. Probably complicated cyst with internal products of hemorrhage or proteinaceous fluid. This appears to have been present on a prior contrast-enhanced CT examination from June 2012. Stability over this time frame favors a benign etiology. It is best further characterized with ultrasound. Incidental note made of a small simple appearing cyst, lateral aspect of the mid left kidney. 12. Please see remainder of vascular anatomic findings in segment of report labeled vascular anatomy above. 13. Patient has what appears to be a nasogastric or orogastric tube, which extends approximately 16 cm below the diaphragm where it loops in the proximal to middle third of the stomach and then extends cephalad with the tip of the tube terminating in the distal esophagus about 3-4 cm above the level of the diaphragm. Repositioning recommended for optimal function. See remainder of incidental findings in body of report above. Dictated by... Gregor James M.D. THIS IS AN ELECTRONICALLY VERIFIED REPORT Gregor James M.D. at 06/11/2016 8:06 PM Keyonna TD: 06/10/2016 06:33 JOB #: [id number] MEDICAL IMAGING REPORT Page 1 of 1 COPY
--- NOTE | ~2016-06-05 | CR4 ---
[facility] A Service of [facility] RADIOLOGY TEXT RESULTS PATIENT: SHANE BILL LOCATION: [facility] 305- : 38 UNIT #: [id number] AGE: [address]: Rashid Angeles MD SEX: M ORDER DR: [id number] [facility] [address] [place], [place] [address] [id number] I MR#: [id number] Acc #: [id number] NAME: SHANE BILL : 1940 SEX: M STUDY DATE/TIME: 06/11/2016 7:39 UNIT: [address] ROOM: [facility] STUDY DESCRIPTION: CR Abdomen Flat Upright or Dec Attending Physician: Rashid Angeles M.D. Ordering Physician: Rashid Angeles M.D. Primary Care Physician: Storm Medellin M.D. MEDICAL IMAGING REPORT This report is preliminary unless electronic signature is present EXAM KUB HISTORY History supplied is abdominal pain, nausea, vomiting beginning 06/05. FINDINGS KUB is obtained. The exam is compared to 06/09. There are postop changes of aortic stent graft placement. There is contrast media throughout the colon to the rectal vault. There are a few air-filled mildly dilated small bowel loops centrally. These are present previously and the degree of distension has not changed. CONCLUSION Continued small bowel distension centrally. Residual contrast media throughout the colon to the rectal vault. Postop changes of prior aortic stent graft placement. Not mentioned above pneumobilia unchanged. Dictated by... Gregor Min M.D. THIS IS AN ELECTRONICALLY VERIFIED REPORT Gregor Min M.D. at 06/14/2016 2:43 PM Cassi TD: 06/11/2016 09:41 JOB #: [id number] MEDICAL IMAGING REPORT Page 1 of 1 COPY
--- NOTE | ~2016-06-05 | OR ---
Unit #: [id number] #: [id number] Patient: SHANE BILL [id number] [address] [address] [id number] I MR#: [id number] NAME: SHANE BILL. ROOM: [facility] Date of Procedure: 06/08/2016 Admission Date: 06/05/2016 Surgeon: Walt Hernandez M.D. : 1940 Attending Physician: Rashid Angeles M.D. Primary Care Physician: Storm Medellin M.D. OPERATIVE REPORT PROCEDURE PERFORMED Esophagogastroduodenoscopy to descending duodenum. INDICATIONS FOR PROCEDURE The patient with bout of hematemesis, undergoing evaluation with upper endoscopy. MEDICATIONS Monitored anesthesia. POSTOPERATIVE FINDINGS 1. Mild nonerosive esophagitis. 2. Diffuse gastritis. 3. Over a liter of dark fluid was aspirated from the stomach. Afterwards, there were no ulcers or active bleeding seen. 4. Normal duodenum and distal duodenum. PLAN 1. Rule out small-bowel obstruction, get KUB. 2. Gastric emptying scan looking for gastroparesis. 3. PPIs. DESCRIPTION OF PROCEDURE The patient was explained of the procedure, risks, and benefits along with risks and benefits of anesthesia. He was brought to the endoscopy room. Propofol anesthesia was given. Bite block was placed. The scope was passed down the mouth into the esophagus, stomach, duodenum, and distal duodenum. Findings as described. No biopsies were taken as the patient has been on Pradaxa. Gently, the scope was pulled out. He tolerated it well. Dictated by... Marielle Nova/nba TD: 06/08/2016 23:43 JOB #: [id number] Unit #: [id number] #: [id number] Patient: SHANE BILL OPERATIVE REPORT Page 1 of 1 X Walt Hernandez MD X PROCEDURE OPERATIVE NOTE
--- NOTE | ~2016-06-05 | CO ---
Unit #: [id number] #: [id number] Patient: SHANE BILL [id number] [address] [place], [place] [address] [id number] I MR#: [id number] NAME: SHANE BILL ROOM: 305 Age: 76 Sex: M Admission Date: 06/05/2016 : 1940 Attending Physician: Stuart Gregorio M.D. Primary Care Physician: Storm Medellin M.D. Consultation Date: 06/06/2016 CONSULTATION REPORT REASON FOR CONSULTATION COPD and abnormal CAT scan. HISTORY OF PRESENT ILLNESS Mr. Bill is a 76-year-old gentleman, who has a history of emphysema, chronic respiratory failure, remote lung cancer, status post right lower lobectomy, who was followed in our office, who presents with a 2-day history of increased shortness of breath. He had wheezing, sputum production. No definite hemoptysis. No definite fever. In the emergency room, he underwent evaluation with CT angiogram, which revealed no pulmonary embolism, evidence of emphysema, and then this new area of a pleural-based mass like area in right upper lobe. He does feel better with treatment overnight with steroids, antibiotics, and nebulized bronchodilators. PAST MEDICAL HISTORY Remarkable for COPD; chronic respiratory failure; peripheral vascular disease, status post abdominal aortic aneurysm repair; multiple incisional hernias; nonsustained ventricular tachycardia; paroxysmal atrial fibrillation; normal left ventricular function; history of gastritis; and gastroesophageal reflux. MEDICATIONS AT HOME He is on Symbicort 2 puffs b.i.d., albuterol and Atrovent mini nebs. He is also on metoprolol, Prilosec, simvastatin, Pradaxa, but apparently was only partially compliant, Singulair, and oxygen that he states he uses 24 hours a day. ALLERGIES Azithromycin. SOCIAL HISTORY Currently, he does not smoke. He used to smoke, but quit now. 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 FAMILY HISTORY No familial lung disease that he is aware. REVIEW OF SYSTEMS No fever, chills, weight loss, chest pain, palpitations, abdominal pain, melena, hematochezia, hematuria, dysuria, focal weakness, paresthesias, leg pain, or swelling. Overall, he has been doing fairly well until few days ago. Apparently, has followup in our office scheduled next month, although he does not know the details. Further review of systems negative. Unit #: [id number] #: [id number] Patient: SHANE BILL PHYSICAL EXAMINATION GENERAL: Reveals a patient, who is in no acute distress. Chronically ill appearing. VITAL SIGNS: Afebrile, pulse 93, respiratory rate 26, blood pressure is 137/84, 5 feet 11 inches, 191 pounds. HEENT: Pupils are equal, round, and reactive to light. Sclerae anicteric. Head atraumatic. Mucous membranes are moist. He has one natural tooth otherwise edentulous. NECK: Supple. No supraclavicular or cervical adenopathy appreciated. No increased jugular venous pressures noted. CHEST: Scattered expiratory wheeze. Prolonged expiratory phase. No stridor. No consolidation. CARDIAC: Reveals regular rate and rhythm. Possible soft murmur. No loud pathologic murmur noted. No gallop. ABDOMEN: Soft, nontender. No hepatomegaly or rebound. Has multiple reducible incisional hernias. EXTREMITIES: Reveal no clubbing, cyanosis, or edema. No calf tenderness. SKIN: Warm and dry without rash or diaphoresis. NEUROLOGIC: Grossly intact. No focal motor or sensory deficits. DIAGNOSTIC STUDIES IMAGING STUDIES: Chest x-ray is fairly unremarkable. CT scan, emphysema and this right upper lobe medial pleural-based abnormality. LABORATORY RESULTS: BUN 9, creatinine 0.7. Cardiac enzymes negative. CBC essentially normal. No cultures. CARDIOVASCULAR STUDIES: EKG, sinus rhythm. IMPRESSION 1. Acute exacerbation of chronic obstructive pulmonary disease. 2. Abnormal CT scan with questionable right upper lobe peripheral based mass versus pneumonia. Apparently was not present on a previous CT scan, although I do not see a previous CT scan in our system. 3. Remote history of lung cancer, status post right lower lobectomy. 4. Peripheral vascular disease, status post abdominal aortic aneurysm repair. 5. Paroxysmal atrial fibrillation. 6. Nonsustained ventricular tachycardia. 7. Normal left ventricular function. PLAN Treatment of his COPD. Agree with steroids, antibiotics, oxygen, and nebulized bronchodilators. He will need short-term CT scan followup. Tomorrow, when the office opens, I will review our office notes. Thank you very much for allowing me to participate in the care of Mr. Bill. Dictated by... Marielle Siegel/nba TD: 06/07/2016 02:09 JOB #: [id number] Unit #: [id number] #: [id number] Patient: SHANE BILL CONSULTATION REPORT X Tariq Hancock MD CONSULTATION REPORT
--- NOTE | ~2016-06-05 | CO ---
Unit #: [id number] #: [id number] Patient: SHANE BILL [id number] [facility]. [place], [place] [address] [id number] MR#: [id number] NAME: SHANE BILL ROOM: [facility] Age: 76 Sex: M Admission Date: 06/05/2016 : 1940 Attending Physician: Rashid Angeles M.D. Primary Care Physician: Storm Medellin M.D. Consultation Date: 06/09/2016 CONSULTATION REPORT REASON FOR CONSULTATION Enlarging aneurysm sac. HISTORY OF PRESENT ILLNESS This is a 76-year-old gentleman, who was admitted to [facility] and being treated for pneumonia. He has a history of an endovascular AAA repair, which he reports was done roughly in 2010 at [facility]. He denies seeing a vascular surgeon since then for followup, but states he does see his primary care physician. He is also currently being evaluated for renal cyst, as well as concern for small bowel obstruction. The patient is currently seen with NG tube in place, but denies any significant abdominal pain. He reports that he is passing flatus. He denies any back pain. He denies any chest pain, fevers, or chills. He states that he is able to ambulate well without issues. Denies any recent leg infections or history of nonhealing wounds. PAST MEDICAL HISTORY Includes COPD; chronic respiratory failure, on oxygen; coronary artery disease; peripheral vascular disease; dyslipidemia; history of lung cancer; GERD/gastritis; mitral regurgitation; PVCs/SVT in the past; paroxysmal atrial fibrillation; ventral hernias. PAST SURGICAL HISTORY Includes cholecystectomy, appendectomy, EVAR roughly in 2010, right lower lobectomy in 2005, ventral hernia repair, left femur fracture with tara insertion, right jaw surgery, ERCP with stent. ALLERGIES Azithromycin. MEDICATIONS AT HOME Singulair 10 mg daily, metoprolol 25 mg b.i.d., Prilosec 40 mg daily, simvastatin 20 mg daily, DuoNeb q.i.d. p.r.n., Pradaxa 150 mg b.i.d. SOCIAL HISTORY Quit smoking approximately in 2004. Denies alcohol or illicit drug use. FAMILY HISTORY Positive for coronary artery disease. Denies any known bleeding disorders, clotting disorders, or aneurysms. REVIEW OF SYSTEMS Other than stated above: CONSTITUTIONAL: Denies fevers, chills. Unit #: [id number] #: [id number] Patient: SHANE BILL ENT: Denies ear pain, tinnitus. RESPIRATORY: Positive for shortness of breath, positive cough. CARDIOVASCULAR: Negative. Denies chest pain, palpitations. GI: Denies nausea, vomiting, diarrhea. : Denies hematuria. HEME: Positive easy bruising. ENDOCRINE: Denies excessive thirst or hunger. MUSCULOSKELETAL: Denies any back pain or neck pain. INTEGUMENTARY: Denies any rash or pruritus. PHYSICAL EXAMINATION VITAL SIGNS: Temperature is 97.6, heart rate 81, blood pressure is 154/85, saturations 95% on 3 L. CONSTITUTIONAL: Well-appearing, in good spirits. EYES: No scleral icterus. NECK: No JVD. No carotid bruits. LYMPH NODES: No lymphadenopathy in the neck or groins. CARDIOVASCULAR: Irregularly irregular. 2+ femoral pulses. RESPIRATIONS: Nonlabored. GI: Abdomen is soft, nontender, but moderately distended. SKIN: No rashes or ulcerations. PSYCHIATRIC: Normal mood and affect. DIAGNOSTIC STUDIES LABORATORY RESULTS: White count 7.9, hematocrit 41.7, platelets 225. Sodium 140, potassium 3.7, chloride 102, CO2 of 29, BUN 26, creatinine 0.7, glucose 112. IMAGING STUDIES: On 06/08/2016 CT abdomen and pelvis without contrast demonstrates a 4.2 to 4.3 cm infrarenal aneurysm sac, which is increased in size from 2013 of 3.5 cm. ASSESSMENT AND PLAN A 76-year-old male, status post endovascular aneurysm repair in approximately 2010 with concern for a large abdominal aortic aneurysm sac. I reviewed both his noncontrast CT scan and I was present during the performance of his CT abdomen with contrast with delayed imaging. I did not see any obvious endoleak, either type 1A or type 2 endoleak. The graft appears to be in good position, does not appear to have migrated significantly, or at all. Having said that, the aneurysm sac does appear to be larger by about 1 cm than in the past. Given the patient's multiple medical issues, there is no need for emergent vascular surgery intervention. He likely will need close monitoring with 3 to 6 month followup with repeat CTA imaging to evaluate for progression of the size of the aneurysm sac. Unfortunately, it is still less than 5 to 5.5 cm. If he continues to demonstrate growth of the aneurysm, I have talked to the patient about potential need for an angiogram, as well as possible coil embolization of any branches that may be feeding the aneurysm sac. The patient is on chronic anticoagulation, and it is of debate, whether or not this anticoagulation promotes or facilitates endoleaks and subsequent aneurysm expansion. I would not hold anticoagulation for this indication however. We will continue to follow the patient while he is inhouse for now, please feel free to contact us with any further questions. Dictated by... Jamin Reynoso M.D. Unit #: [id number] #: [id number] Patient: SHANE BILL Mitch BOYCE/nba TD: 06/10/2016 08:51 JOB #: [id number] CONSULTATION REPORT Page 1 of 1 X X CONSULTATION REPORT
[2016-06-05 20:03] LABS: BASOPHIL# 0.1 X10e3 (0-0.3); BASOPHIL% 0.8 % (0-2.5); EOSINOPHIL# 0.7 X10e3 (0-0.7); EOSINOPHIL% 7.5 % (0.0-7.0); HEMATOCRIT 44.7 % (38.0-50.0); HEMOGLOBIN 14.2 gm/dL (13.0-16.0); LYMPHOCYTE% 22.1 % (17.0-45.0); MEAN CELL VOLUME 93.8 FL (83-96); MEAN CORPUSCULAR HEMOGLOBIN 29.8 PG (28-34); MEAN CORPUSCULAR HGB CONC 31.7 g/dL (30-36); MEAN PLATELET VOLUME 7.8 FL (6.5-11.5); MONOCYTE# 1.3 X10e3 (0-1.0); MONOCYTE% 14.4 % (3.0-12.0); NEUTROPHIL# 4.9 X10e3 (1.5-7.1); NEUTROPHIL% 55.2 % (40-75); PLATELET COUNT 254 X10e3 (140-420); RED BLOOD COUNT 4.76 X10e (3.90-5.60); RED CELL DISTRIBUTION WIDTH 14.9 % (11.0-15.5); WHITE BLOOD COUNT 8.9 X10e3 (4.0-10.5)
[2016-06-05 20:05] LABS: DIFF IND NO
[2016-06-05 20:26] LABS: ALBUMIN SERUM 3.9 g/dL (3.5-5.0); ALKALINE PHOSPHATASE 80 U/L (32-92); ALT (SGPT) 17 U/L (10-40); AST (SGOT) 18 U/L (10-42); BILIRUBIN, DIRECT 0.1 mg/dL (0.0-0.2); BILIRUBIN,INDIRECT 0.4 mg/dL (0.0-0.9); BILIRUBIN,TOTAL 0.5 mg/dL (0.2-2.0); BLOOD UREA NITROGEN 11 mg/dL (9-23); CALCIUM SERUM 8.9 mg/dL (8.4-10.2); CARBON DIOXIDE 35 mmol/L (22-31); CHLORIDE 100 mmol/L (100-111); GLOM FILT RATE Estimated ABOVE60 mL/min (>60); GLUCOSE FASTING 112 mg/dL (70-110); POTASSIUM 4.4 mmol/L (3.5-5.1); PROTEIN TOTAL SERUM 7.6 g/dL (6.0-8.3); SODIUM 142 mmol/L (135-145)
[~2016-06-05 20:50] MED LIST: ACETAMINOPHEN PO; AL-MAG HYDROX-S30 M1 PO; ALBUTEROL; ALBUTEROL MININEB NEB; ALBUTEROL17 GM INH; AMIODARONE HCL100 MG PO; AMITRIPTYLINE H25 MG PO; ASPIRIN EC81 M1 PO; ASPIRIN PO; ASPIRIN81 M2 PO; ASPIRIN81 MG PO; DARVOCET-N 1001 TAB PO; EDARBI40 MG PO; FISH OIL 1,0001 CA2 PO; FISH OIL 1,0001 CAP PO; FLOVENT HFA10.6 G1 IH; FUROSEMIDE40 MG PO; IPRATROPIUM BR2.5 ML NEB; K-DUR20 ME1 PO; LASIX PO; LASIX20 MG PO; LISINOPRIL PO; LISINOPRIL10 MG PO; LOPRESSOR PO; LORTAB 10-5001 EACH PO; METOPROLOL TAR25 MG PO; METOPROLOL TART25 MG PO; OMEPRAZOLE20 M1 PO; PANTOPRAZOLE SO40 MG PO; PRADAXA150 MG PO; PRAVACHOL PO; PRAVACHOL20 MG PO; PRAVASTATIN SOD40 MG PO; PREDNISONE PO; PRILOSEC PO; PRILOSEC20 MG PO; PRILOSEC40 MG; PRILOSEC40 MG PO; PRINIVIL10 MG PO; PROAIR HFA8.5 GM INH; SPIRIVA18 MCG INH; SYMBICORT INH; ZESTRIL10 M1 PO; ZITHROMAX500 MG PO; ZOCOR20 MG PO
[2016-06-05 22:02] LABS: POC - CKMB 3.4 ng/mL (0.0-7.9); POC - TROPONIN <0.05 ng/mL (<=0.05)
[2016-06-05 22:06] LABS: POC - CKMB 1.3 ng/mL (0.0-7.9); POC - TROPONIN <0.05 ng/mL (<=0.05)
[2016-06-06 04:29] LABS: BASOPHIL% 0.2 % (0-2.5); EOSINOPHIL% 0.1 % (0.0-7.0); HEMATOCRIT 41.3 % (38.0-50.0); HEMOGLOBIN 13.2 gm/dL (13.0-16.0); LYMPHOCYTE# 0.3 X10e3 (1.0-3.5); LYMPHOCYTE% 5.5 % (17.0-45.0); MEAN CELL VOLUME 93.5 FL (83-96); MEAN CORPUSCULAR HEMOGLOBIN 29.9 PG (28-34); MEAN PLATELET VOLUME 8.1 FL (6.5-11.5); MONOCYTE% 0.5 % (3.0-12.0); NEUTROPHIL# 5.1 X10e3 (1.5-7.1); NEUTROPHIL% 93.7 % (40-75); PLATELET COUNT 221 X10e3 (140-420); RED BLOOD COUNT 4.42 X10e (3.90-5.60); RED CELL DISTRIBUTION WIDTH 14.9 % (11.0-15.5); WHITE BLOOD COUNT 5.4 X10e3 (4.0-10.5)
[2016-06-06 04:30] LABS: DIFF IND NO
[2016-06-06 04:48] LABS: BLOOD UREA NITROGEN 9 mg/dL (9-23); BUN/CREATININE RATIO 12.85; CALCIUM SERUM 8.5 mg/dL (8.4-10.2); CARBON DIOXIDE 29 mmol/L (22-31); CHLORIDE 97 mmol/L (100-111); CREATININE SERUM 0.7 mg/dL (0.6-1.4); GLOM FILT RATE Estimated ABOVE60 mL/min (>60); GLUCOSE FASTING 162 mg/dL (70-110); POTASSIUM 4.1 mmol/L (3.5-5.1); SODIUM 134 mmol/L (135-145)
[2016-06-07 06:02] LABS: HEMATOCRIT 45.2 % (38.0-50.0); HEMOGLOBIN 14.4 gm/dL (13.0-16.0); LYMPHOCYTE# 0.5 X10e3 (1.0-3.5); LYMPHOCYTE% 3.9 % (17.0-45.0); MEAN CELL VOLUME 92.3 FL (83-96); MEAN CORPUSCULAR HEMOGLOBIN 29.5 PG (28-34); MEAN CORPUSCULAR HGB CONC 31.9 g/dL (30-36); MEAN PLATELET VOLUME 8.1 FL (6.5-11.5); MONOCYTE# 0.4 X10e3 (0-1.0); MONOCYTE% 3.4 % (3.0-12.0); NEUTROPHIL# 11.5 X10e3 (1.5-7.1); NEUTROPHIL% 92.7 % (40-75); PLATELET COUNT 271 X10e3 (140-420); RED BLOOD COUNT 4.89 X10e (3.90-5.60); RED CELL DISTRIBUTION WIDTH 14.9 % (11.0-15.5)
[2016-06-07 06:20] LABS: DIFF IND NO; WHITE BLOOD COUNT 12.4 X10e3 (4.0-10.5)
[2016-06-07 06:38] LABS: BLOOD UREA NITROGEN 17 mg/dL (9-23); BUN/CREATININE RATIO 21.25; CARBON DIOXIDE 34 mmol/L (22-31); CHLORIDE 92 mmol/L (100-111); CREATININE SERUM 0.8 mg/dL (0.6-1.4); GLOM FILT RATE Estimated ABOVE60 mL/min (>60); GLUCOSE FASTING 126 mg/dL (70-110); POTASSIUM 4.2 mmol/L (3.5-5.1); SODIUM 139 mmol/L (135-145)
[2016-06-08 06:06] LABS: HEMATOCRIT 44.3 % (38.0-50.0); HEMOGLOBIN 14.3 gm/dL (13.0-16.0); MEAN CELL VOLUME 92.6 FL (83-96); MEAN CORPUSCULAR HEMOGLOBIN 29.9 PG (28-34); MEAN CORPUSCULAR HGB CONC 32.2 g/dL (30-36); MEAN PLATELET VOLUME 8.4 FL (6.5-11.5); RED BLOOD COUNT 4.78 X10e (3.90-5.60); RED CELL DISTRIBUTION WIDTH 14.9 % (11.0-15.5); WHITE BLOOD COUNT 12.7 X10e3 (4.0-10.5)
[2016-06-08 06:48] LABS: BLOOD UREA NITROGEN 28 mg/dL (9-23); BUN/CREATININE RATIO 31.11; CALCIUM SERUM 9.2 mg/dL (8.4-10.2); CARBON DIOXIDE 35 mmol/L (22-31); CHLORIDE 99 mmol/L (100-111); CREATININE SERUM 0.9 mg/dL (0.6-1.4); GLOM FILT RATE Estimated ABOVE60 mL/min (>60); GLUCOSE FASTING 114 mg/dL (70-110); POTASSIUM 4.4 mmol/L (3.5-5.1); SODIUM 142 mmol/L (135-145)
[2016-06-09 10:14] LABS: HEMATOCRIT 41.7 % (38.0-50.0); HEMOGLOBIN 13.3 gm/dL (13.0-16.0); MEAN CELL VOLUME 92.1 FL (83-96); MEAN CORPUSCULAR HEMOGLOBIN 29.3 PG (28-34); MEAN CORPUSCULAR HGB CONC 31.8 g/dL (30-36); MEAN PLATELET VOLUME 8.2 FL (6.5-11.5); RED BLOOD COUNT 4.53 X10e (3.90-5.60); RED CELL DISTRIBUTION WIDTH 14.9 % (11.0-15.5); WHITE BLOOD COUNT 7.9 X10e3 (4.0-10.5)
[2016-06-09 10:45] LABS: ALKALINE PHOSPHATASE 53 U/L (32-92); ALT (SGPT) 21 U/L (10-40); AST (SGOT) 23 U/L (10-42); BILIRUBIN,TOTAL 0.6 mg/dL (0.2-2.0); BLOOD UREA NITROGEN 26 mg/dL (9-23); BUN/CREATININE RATIO 37.14; CALCIUM SERUM 8.7 mg/dL (8.4-10.2); CARBON DIOXIDE 29 mmol/L (22-31); CHLORIDE 102 mmol/L (100-111); CREATININE SERUM 0.7 mg/dL (0.6-1.4); GLOM FILT RATE Estimated ABOVE60 mL/min (>60); GLUCOSE FASTING 112 mg/dL (70-110); POTASSIUM 3.7 mmol/L (3.5-5.1); SODIUM 140 mmol/L (135-145)
[2016-06-09 17:32] LABS: HEMATOCRIT 44.9 % (38.0-50.0); MEAN CELL VOLUME 92.7 FL (83-96); MEAN CORPUSCULAR HGB CONC 31.3 g/dL (30-36); RED BLOOD COUNT 4.84 X10e (3.90-5.60)
[2016-06-09 17:45] LABS: INR 1.1; PARTIAL THROMBOPLASTIN TIME 29.2 SECONDS (23.5-31.3)
[2016-06-10 05:43] LABS: HEMATOCRIT 40.8 % (38.0-50.0); MEAN CELL VOLUME 91.4 FL (83-96); MEAN CORPUSCULAR HGB CONC 31.7 g/dL (30-36); MEAN PLATELET VOLUME 8.2 FL (6.5-11.5); RED BLOOD COUNT 4.47 X10e (3.90-5.60); RED CELL DISTRIBUTION WIDTH 14.7 % (11.0-15.5); WHITE BLOOD COUNT 13.5 X10e3 (4.0-10.5)
[2016-06-10 06:20] LABS: BLOOD UREA NITROGEN 22 mg/dL (9-23); CALCIUM SERUM 8.4 mg/dL (8.4-10.2); CARBON DIOXIDE 29 mmol/L (22-31); CHLORIDE 106 mmol/L (100-111); CREATININE SERUM 0.8 mg/dL (0.6-1.4); GLOM FILT RATE Estimated ABOVE60 mL/min (>60); GLUCOSE FASTING 91 mg/dL (70-110); POTASSIUM 3.4 mmol/L (3.5-5.1); SODIUM 141 mmol/L (135-145)
[2016-06-11 06:04] LABS: HEMATOCRIT 40.1 % (38.0-50.0); HEMOGLOBIN 12.7 gm/dL (13.0-16.0); MEAN CELL VOLUME 92.7 FL (83-96); MEAN CORPUSCULAR HEMOGLOBIN 29.4 PG (28-34); MEAN CORPUSCULAR HGB CONC 31.8 g/dL (30-36); MEAN PLATELET VOLUME 8.2 FL (6.5-11.5); RED BLOOD COUNT 4.33 X10e (3.90-5.60); WHITE BLOOD COUNT 10.8 X10e3 (4.0-10.5)
[2016-06-11 06:50] LABS: BUN/CREATININE RATIO 25.71; CALCIUM SERUM 7.9 mg/dL (8.4-10.2); CREATININE SERUM 0.7 mg/dL (0.6-1.4); GLOM FILT RATE Estimated 90.4 mL/min (>60); POTASSIUM 3.6 mmol/L (3.5-5.1)
[2016-06-11] MEDS ORDERED: SPIRIVA18 MCG (16:45)
[2016-10-06] MEDS ORDERED: OXYGEN (10:55)
[2016-10-07] MEDS ORDERED: METOPROLOL TAR25 MG PO (13:25)
[2016-10-07] MEDS ORDERED: OMEPRAZOLE40 M1 PO (13:25)
[2016-10-07] MEDS ORDERED: SIMVASTATIN20 MG PO (15:33)
[2016-10-07] MEDS ORDERED: COMBIVENT U/D3 M2 INH (15:41)
[2016-10-07] MEDS ORDERED: SYMBICORT80 INH (16:44)
[2016-10-07] MEDS ORDERED: MONTELUKAST SOD10 MG PO (22:54)
== END 2016-06-11 20:03 | disposition home health service (06) | DRG 190 ==
LOC: CED 20:50 → CEDOF 23:30 → C3A PCU 06-06 08:07
PROVIDERS: Emergency Medicine; Internal Medicine; Surgery
PROC: 0DJ08ZZ Inspection of Upper Intestinal Tract, Via Natural or Artificial Opening Endoscopic (ICD-10-PCS; principal; 2016-06-08 12:16)
DX: J44.0 Chronic obstructive pulmonary disease with (acute) lower respiratory infection (principal); J18.9 Pneumonia, unspecified organism; K56.60 Unspecified intestinal obstruction; J96.10 Chronic respiratory failure, unspecified whether with hypoxia or hypercapnia; K92.0 Hematemesis; I48.0 Paroxysmal atrial fibrillation; Z99.81 Dependence on supplemental oxygen; J44.1 Chronic obstructive pulmonary disease with (acute) exacerbation; K21.9 Gastro-esophageal reflux disease without esophagitis; I10 Essential (primary) hypertension; Z87.891 Personal history of nicotine dependence; Z88.1 Allergy status to other antibiotic agents; I73.9 Peripheral vascular disease, unspecified; Z85.118 Personal history of other malignant neoplasm of bronchus and lung; Z82.49 Family history of ischemic heart disease and other diseases of the circulatory system; Z90.49 Acquired absence of other specified parts of digestive tract; K20.9 Esophagitis, unspecified; K29.70 Gastritis, unspecified, without bleeding; K43.9 Ventral hernia without obstruction or gangrene; N28.89 Other specified disorders of kidney and ureter
CPT/HCPCS: 36415; 71010; 71275; 74020; 74170; 74174; 74176; 74250; 76770; 80048; 80053; 80076; 82553; 84484; 85025; 85027; 85610; 85730; 93005; 94640; 94644; 94664; 94760; 94761; 97110; 97116; 97161; 97165; 97530; 99285; C9113; G8978-GP; G8979-GP; G8980-GP; G8987-GO; G8988-GO; G8989-GO; J0696; J1040; J1956; J2405; J2920; J2930; Q9967

== ENCOUNTER → 2016-10-07 | Outpatient (CLI) | payer MEDICARE, OTHER ==
[~2016-10-07] VITALS: Ht 180.3 cm; Wt 82.0 kg
[~2016-10-07] MED LIST changes: +COMBIVENT U/D3 M2 INH; +MONTELUKAST SOD10 MG PO; +OMEPRAZOLE40 M1 PO; +OXYGEN; +SIMVASTATIN20 MG PO; +SPIRIVA18 MCG; +SYMBICORT80 INH
--- NOTE | ~2016-10-07 | CT134 ---
[facility] A Service of [facility] & [facility] RADIOLOGY TEXT RESULTS PATIENT: SHANE BILL LOCATION: [facility] : 38 UNIT #: [id number] AGE: [address]: Tariq Hancock MD SEX: M ORDER DR: [id number] [facility] [address] [facility]. [place], [place] [address] [id number] O MR#: [id number] Acc #: [id number] NAME: SHANE BILL : 1940 SEX: M STUDY DATE/TIME: 10/07/2016 7:46 UNIT: [facility] ROOM: STUDY DESCRIPTION: CT Guide Attending Physician: Tariq Hancock M.D. Ordering Physician: Tariq Hancock M.D. Primary Care Physician: Storm Medellin M.D. MEDICAL IMAGING REPORT This report is preliminary unless electronic signature is present EXAM CT guided lung biopsy INDICATION Mr. Bill is a 68-year-old man who was noted to have right upper lobe mass in May 2016 and was diagnosed with lung cancer. He has been referred for biopsy. TECHNIQUE This CT exam was performed with one or more of the following radiation dose reduction techniques: automatic exposure control, adjustment of mA and/or kV according to patient size, and iterative reconstruction. PROCEDURE This, benefits, and alternatives to the procedure were explained to the patient and signed, informed consent was obtained. He was placed prone on the CT scanner gantry. Preliminary CT scan was performed through the region of interest and an appropriate site overlying the right upper lobe mass was selected. The overlying skin was marked. The patient was prepped and draped in the usual sterile fashion. Time-out was performed as per protocol. Skin and subcutaneous tissues were anesthetized with buffered lidocaine. Anesthesia needle was left in place. Repeat CT scan was performed which showed appropriate trajectory of the needle and I exchanged for a 17-gauge coaxial needle which was advanced into the mass. Repeat CT scan confirmed appropriate positioning of the needle and at this point two core samples were obtained using an 18-gauge BioPince biopsy gun. Needle was then removed and manual pressure was applied until hemostasis was obtained. Final CT scan showed no evidence of pneumothorax. Patient tolerated the procedure well and there were no immediate complications. The patient did receive moderate sedation consisting of 2.5 mg of Versed and 125 mcg of Fentanyl. I supervised the IVR nurse and monitored the STS. [facility] A Service of [facility] & [facility] RADIOLOGY TEXT RESULTS PATIENT: SHANE BILL LOCATION: [facility] : 38 UNIT #: [id number] AGE: [address]: Tariq Hancock MD SEX: M ORDER DR: patient's vital signs for a total of 14 minutes of [id number] time. IMPRESSION Technically successful CT guided left upper lobe mass biopsy. CT was used during the procedure and permanent images were saved. Dictated by... Virgie Pantoja M.D. THIS IS AN ELECTRONICALLY VERIFIED REPORT Virgie Pantoja M.D. at 10/08/2016 5:50 PM KIERAN/shahriar TD: 10/08/2016 10:24 JOB #: [id number] MEDICAL IMAGING REPORT Page 1 of 1 COPY
--- NOTE | ~2016-10-07 | CR71 ---
[facility] A Service of [facility] & [facility] RADIOLOGY TEXT RESULTS PATIENT: SHANE BILL LOCATION: [facility] : 38 UNIT #: [id number] AGE: [address]: Tariq Hancock MD SEX: M ORDER DR: [id number] [facility] [address] [place], [place] [address] [id number] O MR#: [id number] Acc #: [id number] NAME: SHANE BILL : 1940 SEX: M STUDY DATE/TIME: 10/07/2016 11:50 UNIT: [facility] ROOM: STUDY DESCRIPTION: CR Chest Single View Attending Physician: Tariq Hancock M.D. Ordering Physician: Virgie Pantoja M.D. Primary Care Physician: Storm Medellin M.D. MEDICAL IMAGING REPORT This report is preliminary unless electronic signature is present EXAM Chest portable 10/07/2016 at 11:[address]-guided right lung biopsy. Prior history of lung carcinoma. COMPARISON 10/07/2016 at 08:37 hours FINDINGS Single upright PA view of the chest demonstrates stable volume loss in the right hemithorax. There is no postprocedure pneumothorax. Stable emphysematous changes and linear scarring at the bases. IMPRESSION No postprocedure pneumothorax. Stable volume loss in the right hemithorax with elevation of the right hemidiaphragm. Stable emphysematous changes with linear scarring at the bases. Dictated by... Miguelina Alonso M.D. THIS IS AN ELECTRONICALLY VERIFIED REPORT Miguelina Alonso M.D. at 10/08/2016 2:31 PM RICK/derrek TD: 10/08/2016 13:06 JOB #: [id number] MEDICAL IMAGING REPORT Page 1 of 1 COPY
[2016-10-07 07:01] LABS: BASOPHIL# 0.1 X10e3 (0-0.3); EOSINOPHIL# 0.4 X10e3 (0-0.7); EOSINOPHIL% 6.9 % (0.0-7.0); HEMATOCRIT 42.7 % (38.0-50.0); HEMOGLOBIN 13.6 gm/dL (13.0-16.0); LYMPHOCYTE# 1.8 X10e3 (1.0-3.5); LYMPHOCYTE% 28.4 % (17.0-45.0); MEAN CELL VOLUME 91.8 FL (83-96); MEAN CORPUSCULAR HEMOGLOBIN 29.3 PG (28-34); MEAN CORPUSCULAR HGB CONC 31.9 g/dL (30-36); MONOCYTE# 0.7 X10e3 (0-1.0); MONOCYTE% 11.5 % (3.0-12.0); NEUTROPHIL# 3.4 X10e3 (1.5-7.1); NEUTROPHIL% 52.2 % (40-75); PLATELET COUNT 235 X10e3 (140-420); RED BLOOD COUNT 4.65 X10e (3.90-5.60); RED CELL DISTRIBUTION WIDTH 14.1 % (11.0-15.5); WHITE BLOOD COUNT 6.4 X10e3 (4.0-10.5)
[2016-10-07 07:04] LABS: DIFF IND NO
[2016-10-07 07:14] LABS: PARTIAL THROMBOPLASTIN TIME 28.4 SECONDS (23.5-31.3)
== END | disposition home or self-care (01) ==
LOC: CIVR 06:12
PROVIDERS: Internal Medicine
DX: R91.8 Other nonspecific abnormal finding of lung field (principal); J44.9 Chronic obstructive pulmonary disease, unspecified; Z99.81 Dependence on supplemental oxygen; Z88.1 Allergy status to other antibiotic agents; Z79.899 Other long term (current) drug therapy
CPT/HCPCS: 71010; 77012; 85025; 85610; 85730; 88305; 88341; 88342; J2250; J3010

== ENCOUNTER → 2016-10-25 | Outpatient (CLI) | payer MEDICARE, OTHER ==
--- NOTE | ~2016-10-25 | CT69 ---
[facility] A Service of [facility] & [facility] RADIOLOGY TEXT RESULTS PATIENT: SHANE BILL LOCATION: [facility] : 38 UNIT #: [id number] AGE: [address]: Cori Wilson MD SEX: M ORDER DR: [id number] [facility] [address] [place], [place] [address] [id number] O MR#: [id number] Acc #: [id number] NAME: SHANE BILL : 1940 SEX: M STUDY DATE/TIME: 10/25/2016 8:27 UNIT: [facility] ROOM: STUDY DESCRIPTION: CT Head W Contrast Attending Physician: Cori Wilson M.D. Referring Physician: Cori Wilson M.D. Ordering Physician: Cori Wilson M.D. Primary Care Physician: Storm Medellin M.D. MEDICAL IMAGING REPORT This report is preliminary unless electronic signature is present EXAM CT head INDICATION Lung cancer. Right lower lobe pulmonary malignancy. Observation for metastatic disease. Restaging. TECHNIQUE CT of the head utilizing 100 mL Isovue-[address] exam was performed with one or more of the following radiation dose reduction techniques: automatic exposure control, adjustment of mA and/or kV according to patient size, and iterative reconstruction. COMPARISON Concurrent CT chest and abdomen dated 10/25/2016. PET/CT dated 07/06/2016. FINDINGS There is no abnormal enhancing mass or lesion identified. There is no edema or shift. There is some generalized global atrophy as well as some mild small vessel changes. The ventricles and basilar cisterns are normal in size and configuration. No extraaxial collections or abnormal extraaxial enhancement. 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 There is a single well-circumscribed lytic lesion in the calvaria at the vertex of the left parietal bone. This is well-defined and well corticated. No aggressive malignant features are identified. 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 IMPRESSION 1. No convincing evidence of metastatic disease in the head. STS. [facility] A Service of [facility] & [facility] RADIOLOGY TEXT RESULTS PATIENT: SHANE BILL LOCATION: [facility] : 38 UNIT #: [id number] AGE: [address]: Cori Wilson MD SEX: M ORDER DR: 2. Single lytic lesion in the calvaria near the vertex. This has some benign appearing features and is probably a arachnoid granulation, however, should be followed. Dictated by... Robby Patel M.D. THIS IS AN ELECTRONICALLY VERIFIED REPORT Robby Patel M.D. at 10/25/2016 1:00 PM Anne TD: 10/25/2016 11:12 JOB #: [id number] MEDICAL IMAGING REPORT Page 1 of 1 COPY
--- NOTE | ~2016-10-25 | CT5 ---
[facility] A Service of [facility] & [facility] RADIOLOGY TEXT RESULTS PATIENT: SHANE BILL RAY LOCATION: [facility] : 38 UNIT #: [id number] AGE: [address]: Cori Wilson MD SEX: M ORDER DR: [id number] [facility] [address] [facility]. [place], [place] [address] [id number] O MR#: [id number] Acc #: [id number] NAME: SHANE BILL : 1940 SEX: M STUDY DATE/TIME: 10/25/2016 8:20 UNIT: [facility] ROOM: STUDY DESCRIPTION: CT Abdomen W Cont Attending Physician: Cori Wilson M.D. Referring Physician: Cori Wilson M.D. Ordering Physician: Cori Wilson M.D. Primary Care Physician: Storm Medellin M.D. MEDICAL IMAGING REPORT This report is preliminary unless electronic signature is present EXAM CT abdomen INDICATIONS Right lower lobe pulmonary malignancy. Observation for metastatic disease. Restaging. TECHNIQUE CT of the abdomen with (100 mL Isovue-370 IV contrast). Coronal and sagittal reconstructions were obtained. This CT exam was performed with one or more of the following radiation dose reduction techniques: automatic exposure control, adjustment of mA and/or kV according to patient size, and iterative reconstruction. COMPARISON CT abdomen dated 06/11/2011. FINDINGS There are a few low-attenuation cysts within the liver. No new or suspicious liver lesions. Pneumobilia is indicative of prior sphincterotomy. The pancreas, spleen, and adrenal glands are unchanged. There is mild atrophy of the kidneys as well as a few exophytic lesions of the kidneys. These are unchanged and probably represent hemorrhagic or proteinaceous cyst. No hydronephrosis. The bowel is not dilated. No enlarged retroperitoneal or mesenteric lymph nodes. There are a few anterior abdominal wall hernias containing omental fat, however no complicating features. There has been prior abdominal aortic aneurysm endograft repair. The aneurysm sac measures up to 4.1 cm maximally. Contrast within the [facility] A Service of [facility] & [facility] RADIOLOGY TEXT RESULTS PATIENT: SHANE BILL LOCATION: [facility] : 38 UNIT #: [id number] AGE: [address]: Cori Wilson MD SEX: M ORDER DR: superior portion of the [place] aneurysm sac suggests an endoleak. There is a focal area of sclerosis associated with the L2 vertebra. This is unchanged in size. IMPRESSION 1. No evidence of disease progression. 2. Sclerotic focus in the L2 vertebra is nonspecific, however does not appear significantly changed from the prior study. This can be followed. 3. Multiple exophytic lesions off the kidneys are probably hemorrhagic proteinaceous cysts. These are unchanged. Dictated by... Robby Patel M.D. THIS IS AN ELECTRONICALLY VERIFIED REPORT Robby Patel M.D. at 10/26/2016 4:14 PM PRACHI/leela TD: 10/25/2016 19:19 JOB #: [id number] MEDICAL IMAGING REPORT Page 1 of 1 COPY
--- NOTE | ~2016-10-25 | CT55 ---
[facility] A Service of [facility] & [facility] RADIOLOGY TEXT RESULTS PATIENT: SHANE BILL RAY LOCATION: [facility] : 38 UNIT #: [id number] AGE: [address]: Cori Wilson MD SEX: M ORDER DR: [id number] [facility] [address] [place], [place] [address] [id number] O MR#: [id number] [facility] #: [id number] NAME: SHANE BILL : 1940 SEX: M STUDY DATE/TIME: 10/25/2016 8:20 UNIT: [facility] ROOM: STUDY DESCRIPTION: CT Chest W Con Attending Physician: Cori Wilson M.D. Referring Physician: Cori Wilson M.D. Ordering Physician: Cori Wilson M.D. Primary Care Physician: Storm Medellin M.D. MEDICAL IMAGING REPORT This report is preliminary unless electronic signature is present EXAM CT chest. INDICATION Lung cancer. Right lower lobe pulmonary malignancy, status post right lower lobe resection. Restaging. TECHNIQUE CT of the chest with IV contrast (100 mL Isovue-370 IV contrast). Coronal and sagittal reconstructions were obtained. This CT exam was performed with one or more of the following radiation dose reduction techniques: automatic exposure control, adjustment of mA and/or kV according to patient size, and iterative reconstruction. COMPARISON Concurrent CT abdomen, 10/25/2016 and PET/CT dated 07/06/2016. FINDINGS Patient is status post right lower lobe resection. There is severe emphysema. Overall, there has been a positive response therapy. An enlarged mediastinal lymph node posterior to the esophagus measures 0.9 cm in short axis compared to 1.7 cm previously. A pleural based lesion in the medial and superior right hemithorax (adjacent to the T4 and T5 vertebra measures up 2.2 x 1.3 cm, compared to 4.6 x 1.7 cm previously. A small pleural-based lesion, also in the right superior hemithorax measures 0.8 cm compared to 1.07 previously. An area of consolidation in the left lower lobe has significantly improved. The 3.3 cm area of consolidation has resolved. An adjacent area measuring 2.3 cm previously measured 3.2 cm. There is some mucus plugging within the left lower lobe bronchus. Patient has undergone prior right lower lobectomy. There is severe background emphysema. [facility] A Service of [facility] RADIOLOGY TEXT RESULTS PATIENT: SHANE BILL LOCATION: [facility] : 38 UNIT #: [id number] AGE: [address]: Cori Wilson MD SEX: M ORDER DR: No pericardial or pleural effusion. Please refer to a separate dictated report for details on the abdomen. No acute osseous abnormalities. There is an old compression deformity of T12. IMPRESSION 1. Interval response to therapy. The mediastinal lymph nodes and pleural-based lesions have improved in the interval. 2. Area of consolidation in the left lower lobe has significantly improved. 3. Emphysema. Dictated by... Robby Patel M.D. THIS IS AN ELECTRONICALLY VERIFIED REPORT Robby Patel M.D. at 10/26/2016 4:14 PM PRACHI/deepa TD: 10/25/2016 19:15 JOB #: [id number] MEDICAL IMAGING REPORT Page 1 of 1 COPY
[2016-10-25 18:35] LABS: POC - CREATININE 0.88 mg/dL (0.64-1.27); POC - GFR >60.0 mL/min (>60)
== END | disposition home or self-care (01) ==
LOC: CCAT 07:11
PROVIDERS: Internal Medicine Hematology
DX: C34.31 Malignant neoplasm of lower lobe, right bronchus or lung (principal); G93.9 Disorder of brain, unspecified; J18.1 Lobar pneumonia, unspecified organism; J43.9 Emphysema, unspecified; N28.89 Other specified disorders of kidney and ureter; Z90.2 Acquired absence of lung [part of]
CPT/HCPCS: 70460; 71260; 74160; 82565; Q9967